=== PATIENT | male | born 1940 | race Caucasian/White ===

== ENCOUNTER 2018-05-13 09:06 | Observation (INO) | payer OTHER ==
[~2018-05-13] VITALS: Ht 180.3 cm; Wt 84.9 kg
[2018-05-13] MEDS ORDERED: SODIUM CHLORIDE 0.9% 1000ML 1,000 ML IV STA (09:18)
[2018-05-13 09:38] LABS: BASOPHILS % 0.4 % (0.0-1.0); EOSINOPHILS # (AUTO) 0.2 (0.0-0.4); EOSINOPHILS % 1.9 % (0.0-6.0); HEMATOCRIT 42.9 % (38.2-49.6); HEMOGLOBIN 14.2 g/dL (14.0-18.0); LYMPHOCYTES # (AUTO) 1.9 (1.0-3.2); LYMPHOCYTES % 20.3 % (18.0-39.1); MEAN CORPUSCULAR HEMOGLOBIN 30.7 pg (28-32); MEAN CORPUSCULAR HGB CONC 33.1 g/dL (31-35); MEAN CORPUSCULAR VOLUME 92.7 fL (81-99); MONOCYTES # (AUTO) 1.1 (0.2-0.8); MONOCYTES % 11.3 % (4.4-11.3); NEUTROPHILS # (AUTO) 6.1 (2.1-6.9); NEUTROPHILS % 65.8 % (38.7-80.0); PLATELET COUNT 206 x10e3/uL (140-360); RED BLOOD COUNT 4.63 x10e6/uL (4.3-5.7); RED CELL DISTRIBUTION WIDTH 13.4 % (11.7-14.4)
[2018-05-13 09:42] LABS: INR 1.06
[2018-05-13 09:43] LABS: PARTIAL THROMBOPLASTIN TIME 21.2 seconds (23.8-35.5)
[2018-05-13 09:54] LABS: ALBUMIN 3.9 g/dL (3.5-5.0); ALBUMIN/GLOBULIN RATIO 1.1 (0.8-2.0); ANION GAP 14.6 mmol/L (8-16); CALCIUM 9.9 mg/dL (8.4-10.2); CREATININE, SERUM 1.22 mg/dL (0.72-1.25); MAGNESIUM 2.3 MG/DL (1.3-2.1); POTASSIUM 4.6 mmol/L (3.5-5.1)
[2018-05-13 10:00] LABS: CREATINE KINASE MB 1.7 ng/mL (0-5.0)
--- NOTE | 2018-05-13 10:26 | Diagnostic Imaging Report ---
EXAMINATION: Head CT HISTORY: Near syncope. COMPARISON: None. TECHNIQUE: Multidetector axial images were obtained without contrast from the foramen magnum to the vertex . The images were reconstructed using brain and bone algorithms. Thin section brain images were reformatted into coronal and sagittal planes. Intravenous contrast: None. Motion/streaking artifact limits the evaluation of the skull base and posterior cranial fossa. FINDINGS: Parenchyma: 1. Few scattered white natter hypodensities, most likely mild chronic microvascular changes. 2. No mass or hemorrhage. No CT evidence of acute territorial vascular insult. Extra-axial spaces:No abnormal density. No extra-axial fluid collections Brain volume: Normal for age. Ventricles: No hydrocephalus or displacement. Arteries: No density suggestive of thrombus. Dural sinuses: No abnormal density. Extra-axial spaces: No abnormal density. Foramen magnum: No mass, Chiari malformation, or basilar invagination. Sella: No obvious mass. Paranasal/mastoid sinuses: Imaged portions unremarkable. Skull/Scalp: No lytic or blastic lesions. No fractures. IMPRESSION: Mld chronic microvascular changes, otherwise no intracranial abnormalities. Signed by: Dr. Mary Beth De La Cruz M.D. on 05/13/2018 10:22 AM
--- NOTE | 2018-05-13 10:42 | Diagnostic Imaging Report ---
EXAMINATION: CHEST SINGLE (PORTABLE) INDICATION: \S\ERMD ORDER \[id number] \S\[id number] \S\Y COMPARISON: None FINDINGS: AP view TUBES and LINES: None. LUNGS: Lungs are well inflated. Lungs are clear. There is no evidence of pneumonia or pulmonary edema. PLEURA: No pleural effusion or pneumothorax. HEART AND MEDIASTINUM: The cardiomediastinal silhouette is unremarkable.. BONES AND SOFT TISSUES: No acute osseous lesion. Soft tissues are unremarkable. UPPER ABDOMEN: No free air under the diaphragm. IMPRESSION: No acute thoracic abnormality. Signed by: Dr. Lian Bender M.D. on 05/13/2018 10:39 AM
[2018-05-13 11:56] VITALS: BP 147/83
[2018-05-13 12:30] VITALS: BP 147/83
[2018-05-13] MEDS: SODIUM CHLORIDE 0.9% 1000ML 1,000 ML IV SCH (13:09)
[2018-05-13 16:59] VITALS: BP 118/73
[2018-05-13 17:28] LABS: CREATINE KINASE MB 1.9 ng/mL (0-5.0)
[2018-05-13 20:00] VITALS: BP_SYST 130; BP_SYST 132; BP_DIAS 68; BP_DIAS 77
[2018-05-14] VITALS: BP 127/72
[2018-05-14 00:05] VITALS: BP 130/68
[2018-05-14] MEDS: SODIUM CHLORIDE 0.9% 1000ML 1,000 ML IV SCH ×2 (01:56→08:40)
[2018-05-14 03:55] LABS: BASOPHILS % 0.5 % (0.0-1.0); EOSINOPHILS # (AUTO) 0.1 (0.0-0.4); EOSINOPHILS % 1.5 % (0.0-6.0); HEMATOCRIT 38.8 % (38.2-49.6); HEMOGLOBIN 12.9 g/dL (14.0-18.0); LYMPHOCYTES # (AUTO) 1.5 (1.0-3.2); LYMPHOCYTES % 19.8 % (18.0-39.1); MEAN CORPUSCULAR HEMOGLOBIN 30.8 pg (28-32); MEAN CORPUSCULAR HGB CONC 33.2 g/dL (31-35); MEAN CORPUSCULAR VOLUME 92.6 fL (81-99); MONOCYTES # (AUTO) 0.9 (0.2-0.8); MONOCYTES % 11.6 % (4.4-11.3); NEUTROPHILS # (AUTO) 4.8 (2.1-6.9); NEUTROPHILS % 66.3 % (38.7-80.0); PLATELET COUNT 191 x10e3/uL (140-360); RED BLOOD COUNT 4.19 x10e6/uL (4.3-5.7); RED CELL DISTRIBUTION WIDTH 13.6 % (11.7-14.4)
[2018-05-14 04:00] VITALS: BP 136/20
[2018-05-14 04:11] LABS: ALANINE AMINOTRANSFERASE 12 IU/L (0-55); ALBUMIN 3.3 g/dL (3.5-5.0); ALBUMIN/GLOBULIN RATIO 1.1 (0.8-2.0); ALKALINE PHOSPHATASE 62 IU/L (40-150); ANION GAP 13.4 mmol/L (8-16); BLOOD UREA NITROGEN 16 mg/dL (7-26); BUN/CREATININE RATIO 16 (6-25); CALCIUM 8.8 mg/dL (8.4-10.2); CARBON DIOXIDE 22 mmol/L (22-29); CHLORIDE 111 mmol/L (98-107); CHOL/HDL RATIO 4.4 (3.9-4.7); CHOLESTEROL 191 MD/DL (0-199); CREATININE, SERUM 0.98 mg/dL (0.72-1.25); EST GLOMERULAR FILTRATION RATE > 60 ML/MIN (60-); GLUCOSE 96 mg/dL (74-118); HDL CHOLESTEROL 43 MG/DL (40-60); LDL CHOLESTEROL 133 MG/DL (60-130); POTASSIUM 4.4 mmol/L (3.5-5.1); SODIUM 142 mmol/L (136-145); TRIGLYCERIDES 73 MG/DL (0-149)
[2018-05-14 04:54] LABS: CREATINE KINASE 107 IU/L (30-200)
[2018-05-14 07:37] VITALS: BP 135/83
[2018-05-14] MEDS ORDERED: ACETAMINOPHEN 325 MG TAB PO PRN (09:00)
--- NOTE | 2018-05-14 09:24 | History and Physical ---
CHIEF COMPLAINT: Syncope. HISTORY: The patient is a 77-year-old male who was at [employer]. While he was standing talking to his friend, he felt kind of weak and had an upset stomach. Therefore, he went and sat down. The next thing he knows he woke up and people was telling him that he did pass out. The patient had this episode approximately 5 years ago, and he subsequently had no further problems after that. The patient is stable. He has no complaint of chest pain or shortness of breath. He does have osteoarthritis. The patient denied any headaches or dizziness prior to his episode. He did have some generalized weak feeling in his stomach on that day. The patient only had a meal of a shake in the morning. He did not have breakfast or lunch. Patient is now stable. No abdominal pain or shortness of breath. Lab work otherwise unremarkable. PAST MEDICAL HISTORY: Osteoarthritis and a syncopal episode approximately 5 years ago. PAST SURGICAL HISTORY: Noncontributory. SOCIAL HISTORY: Patient does not smoke or use alcohol. No recreational drugs. ALLERGIES: NO KNOWN ALLERGIES. HOME MEDICATIONS: None. REVIEW OF SYSTEMS: Unremarkable. PHYSICAL EXAMINATION VITAL SIGNS: Temperature is 98, blood pressure 135/83, pulse rate 73, respirations 18. GENERAL: Patient is not in acute distress. He is awake. HEENT: Normocephalic, atraumatic and anicteric. NECK: Supple grossly. PULMONARY: Clear. CARDIOVASCULAR: Regular rate and rhythm. ABDOMEN: Soft, nontender and no distention. EXTREMITIES: No cyanosis or edema. NEUROLOGIC: No gross focal deficit. LABORATORY: Sodium is 142, potassium 4.4, chloride 111, bicarb 22, BUN 16, creatinine 0.9, glucose is 96. WBC 7.3, hemoglobin 12.9, hematocrit 38.8, and platelets 191,000. CT scan of the brain and chest x-ray unremarkable. EKG showed low QRS voltage and sinus rhythm. IMPRESSION: Syncopal episode. PLAN: Consultation Dr. Regino Henao, cardiology. Carotid Doppler and echocardiogram today. Will monitor the patient closely for any changes. The patient's planning will depend on Dr. Henao's recommendations and tests today. Job#: [id number] [place]
[2018-05-14 11:23] VITALS: BP 155/90
--- NOTE | 2018-05-14 13:52 | Consultation ---
DATE OF CONSULTATION: HISTORY OF PRESENT ILLNESS: Mr. Ty is a 77-year-old gentleman with past medical history as listed below. Apparently he was standing and talking to some friends at a Monday class yesterday when he felt very nauseous and dizzy, so he went and sat down. On sitting down, he apparently passed out for about 5 seconds. His was with him. He broke out in a sweat, but had no chest pain, shortness of breath or palpitations. He states about 5 years back he had an episode. Otherwise, he has been doing pretty well. He apparently has some vision issues and has been drinking some smoothies for that. He did not eat any breakfast. He feels fine now. REVIEW OF SYMPTOMS CONSTITUTIONAL: No fatigue or weakness. HEENT: No headache, blurring of vision, seizures. Had syncope. CARDIOVASCULAR: No chest pain, dyspnea, orthopnea, PND. RESPIRATORY: No cough, fever or expectoration. GI: No abdominal pain, vomiting or diarrhea. : No dysuria, frequency or incontinence. ALLERGIES: NO KNOWN DRUG ALLERGIES. MEDICATIONS: See list. PAST MEDICAL HISTORY 1. History of arthritis. 2. History of some vision problems. SOCIAL HISTORY: Does not smoke or drink. FAMILY HISTORY: Noncontributory. PHYSICAL EXAMINATION VITALS: Heart rate 73, blood pressure 135/83, respiratory rate 16. GENERAL: Well built and nourished gentleman, alert, oriented, not in any obvious distress. HEENT: Atraumatic. NECK: No JVD, bruit, thyromegaly, lymphadenopathy. CHEST: Clear to auscultation. CARDIOVASCULAR: First and 2nd heart sounds heard. No murmurs, rubs or gallops appreciated. ABDOMEN: Soft, nontender. EXTREMITIES: No edema. LABS: Sodium is 142, potassium 4.4, chloride 111, bicarb is 22, BUN is 16, creatinine 0.9. Hemoglobin 12.9, hematocrit 38.8, platelets 191. White count 7.3. EKG shows sinus rhythm at 74 beats per minute, normal axis, normal intervals, poor R-wave progression V1 to V3, nonspecific ST-T changes. Carotid Doppler shows no significant stenosis. Echocardiogram shows normal LV function, mild mitral regurgitation. IMPRESSION AND PLAN 1. Syncope. 2. History of arthritis. 3. History of some vision problems. PLAN 1. Syncopal episode could have been a vasovagal episode. 2. Patient feels fine now. His carotid and echo look okay. No EKG changes. No arrhythmias noted. The patient is keen on going home. Okay to discharge, and he can follow up as an outpatient. As always, appreciate and thank you very much for your referrals. Job#: [id number]
--- NOTE | 2018-05-14 17:47 | Discharge Summary ---
PRIMARY CARE PHYSICIAN: Dr. Chino Puetne. FINAL DIAGNOSIS: Syncopal episode, etiology unclear. SUMMARY: A 77-year-old male came in with syncopal episode. The last episode was 5 years ago. Apparently he was only drinking protein shake in the morning and then basically at lunch and in the afternoon. The patient was feeling weak and had episode of passing out after sitting down, etiology unclear. The patient had CT scan of the brain along with MRI as well as carotid Doppler, echocardiogram otherwise unremarkable. Laboratory work unremarkable. The patient is stable. His has been cleared by Dr. Regino Henao for discharge home. The patient will go home. Resume home medication. Baby aspirin once a day. Follow up with Dr. Henao as an outpatient. Follow up with family physician for referral to either neurologist or cash posting clerk for further cardiac workup for arrhythmia. Discussed with the patient at length and he expressed understanding. Job#: [id number]
== END 2018-05-14 14:42 | disposition home or self-care (01) ==
LOC: ER 09:09 → ERHOLD 11:28 → IMCU 11:57
PROVIDERS: ADMIT Internal Medicine; ATTEND Internal Medicine
DX: R55 Syncope and collapse (principal); M19.90 Unspecified osteoarthritis, unspecified site
CPT/HCPCS: 36415 ×2; 70450; 71045; 80053 ×2; 80061; 82550 ×2; 82553 ×2; 83735; 83880; 84484 ×2; 85025 ×2; 85610; 85730; 93306; 93880; 99284; G0378 ×2; J7030 ×2